=== PATIENT | male | born 1990 | race Two or more races ===

== ENCOUNTER 2019-01-04 13:34 | Emergency (ER) | payer OTHER ==
[2019-01-04 19:41] LABS: PLATELET COUNT 186 10^3/uL (150-400)
[2019-01-04 19:53] LABS: CREATINE KINASE 147 IU/L (0-224)
[2019-01-04 20:14] VITALS: BP 130/88
[2019-01-04 20:18] LABS: INR 1.02 (0.83-1.16)
--- NOTE | 2019-01-05 08:49 | CPEKG ---
Test Reason : OPEN Blood Pressure : / mmHG Vent. Rate : 067 BPM Atrial Rate : 068 BPM P-R Int : 153 ms QRS Dur : 088 ms QT Int : 389 ms P-R-T Axes : 032 -18 003 degrees QTc Int : 411 ms Sinus rhythm Borderline left axis deviation Confirmed by Maximino Wagner ([id number]) on 01/05/2019 8:49:20 AM Referred By: PHYSICIAN ED Confirmed By:Maximino Wagner
--- NOTE | 2019-01-07 07:37 | EDPHY ---
H & P Time Seen by Provider: 01/04/19 13:40 HPI/ROS: HPI Chest discomfort. 28-year-old male by private vehicle with his friend who is translating. This patient is speaking. This patient reports he has had intermittent chest pain over the last 2-3 days. He describes this is coming on as sharp pain that comes on suddenly involving his epigastric and lower anterior sternal area and then resolves after about 30 sec. He reports that he has had these pains on and off for some time, estimated up to 1-2 years. He reports he has seen his primary care physician regarding these pains. He reports having a normal EKG in the past. He has never had a formal workup for these pains. He reports these pains that he presents to the emergency department with today are the same as the pains he has had in the past. He reports that they have just been more frequent over the last couple of days and slightly more intense. No associated shortness of breath. No cough. He denies any significant past medical history. He does not smoke. No significant cardiac risk factors. ROS: Constitutional: No fever, no chills. No weakness. Eyes: No discharge. No changes in vision. ENT: No sore throat. No nasal congestion or rhinorrhea. Respiratory: No cough. No shortness of breath. Cardiac: As above, no palpitations. Gastrointestinal: No abdominal pain, no vomiting, no diarrhea. Genitourinary: No hematuria. No dysuria or increased frequency with urination. Musculoskeletal: No back pain. No neck pain. No myalgias or arthralgias. Skin: No rashes. Neurological: No headache. No focal weakness or altered sensation. Past medical history: As above. Social history: Nonsmoker. Here with his friend. No IV drugs or street drugs. Denies alcohol. Physical Exam: General Appearance: Alert, no distress. This patient is responding to questions appropriately and in full sentences. This patient appears well- hydrated and well-nourished. Eyes: Pupils equal and round no pallor or injection. No lid edema, erythema or injection. Respiratory: There are no retractions, lungs are clear to auscultation with good air movement bilaterally. Cardiovascular: Regular rate and rhythm. No murmur. Gastrointestinal: Abdomen is soft and nontender, no masses, bowel sounds normal. No focal tenderness at McBurney's point. No Rojas sign. Neurological: Motor sensory function is grossly intact. Cranial nerves are normal. Gait is normal. Skin: Warm and dry, no rashes. Musculoskeletal: Neck is supple and nontender. Extremities are symmetrical. All joints range without pain or impingement. Psychiatric: No agitation. No depression. Database: EKG: EKG time is 1:55 p.m.; EKG shows a narrow complex normal sinus rhythm with a ventricular rate of 67. T-wave inversion noted in lead 3. Borderline left axis deviation. The MS, QRS, QT intervals are within normal limits. Otherwise, there are no ST-T wave changes indicative of ischemic or injury pattern. No evidence of right heart strain. Interpreted by me. Imaging: Chest x-ray AP portable: The cardiac mediastinal silhouette is unremarkable. No acute cardiopulmonary disease process noted. Interpreted by me. Procedures: Emergency department course: Triage vital signs reviewed. He was initially hypertensive but this resolved. Vital signs otherwise unremarkable. IV was placed. An EKG was obtained and reviewed by myself. During my evaluation of the patient he denied any significant chest discomfort. His presentation is not consistent with acute coronary syndrome, pericarditis or aortic dissection. He has a benign abdomen. The patient was re-evaluated after I had obtained his test results. Results of his diagnostic workup were thoroughly discussed with him. It is unlikely that his chest pain is cardiac in nature. I discussed treating him with ibuprofen for possible lisa carditis. Dosing was discussed. I have instructed him to follow up with his primary care physician for re-evaluation. I also explained to him that I would have him follow up with our cardiology group. A outpatient cardiology consultation order was placed. He feels comfortable going home with his friend at this time. I feel he is safe for discharge. He understands his follow-up. Return to emergency department precautions of thoroughly been reviewed with him. All of his questions were answered. He was discharged from the emergency department in good condition. Documentation of this chart, outpatient follow-up orders and summary may be partially incomplete or delayed secondary to computer down time on day of patient visit. Differential Diagnosis: The differential diagnosis on this patient includes but is not limited to esophageal spasm, pleurisy, costochondritis, possible pericarditis. Aortic dissection, acute coronary syndrome, pulmonary embolism, pneumothorax, pneumonia unlikely. This represents a partial list of diagnoses considered. These considerations are based on history, physical exam, past history, reassessment and diagnostic testing. Constitutional: Initial Vital Signs Temperature (C) 37.0 C 01/04/19 13:38 Heart Rate 78 01/04/19 13:38 Respiratory Rate 18 01/04/19 13:38 Blood Pressure 165/118 H 01/04/19 13:38 O2 Sat (%) 98 01/04/19 13:38 O2 Delivery Mode Room Air Medical Decision Making - Data Points Laboratory Results: Laboratory Results 01/04/19 13:34 01/04/19 13:34 Departure - Departure Disposition: Home, Routine, Self-Care Clinical Impression: Chest discomfort Condition: Good Instructions: Chest Pain (ED) Additional Instructions: Read and follow provided instructions. Follow-up with your primary care physician in 1-2 days for re-evaluation as discussed. I have also sent a request to our cardiology group to follow up with you in clinic for re-evaluation. If you do not hear from them by Wednesday at noon time, call their office for appointment time. Explain this is for an emergency department follow-up for your chest discomfort. Ibuprofen dosin mg every 6 hours with meals for the next 3 days only. Take only as needed for pain. Return to the emergency department for worsening symptoms, worsening chest discomfort or pain, shortness of breath, vomiting, fever or other serious concerns. Referrals: NONE *PRIMARY CARE P,. [Primary Care Provider] - As per Instructions [facility] [Provider Group] - As per Instructions
== END 2019-01-04 16:42 | disposition home or self-care (01) ==
DX: R07.9 Chest pain, unspecified (principal)